=== PATIENT | female | born 1990 | race Caucasian/White ===

== ENCOUNTER → 2018-10-24 | Outpatient (CLI) | payer SELFPAY ==
[~2018-10-24] MED LIST: DOCU100C37 PO; FLUO40CA; FLUO40CA12 PO; HYOS0.1283 SL; IBUP-1780 PO; KETO10TA PO; NITR-65 PO; OXYC-465 PO; PHEN-640 PO; PREG50CA2 PO
--- NOTE | 2018-10-24 11:32 | Diagnostic Imaging Report ---
PROCEDURE: MRI lumbar spine. TECHNIQUE: Multiplanar, multisequence MRI of the lumbar spine was performed without contrast. INDICATION: Chronic low back pain. COMPARISON: No prior studies are available for comparison. FINDINGS: Curvature of the lumbar spine is normal. There is minimal retrolisthesis of L5 on S1. Vertebral body heights are maintained. The marrow signal intensity is normal. No acute compression fracture or geographic marrow lesion is seen. There is normal height and signal intensity to the lumbar intervertebral discs apart from some desiccation and mild narrowing at the L5-S1 level compatible with degenerative disc disease. The conus is unremarkable at the L1-L2 level. T12-L1: Central canal and neural foramina are widely patent. L1-L2: No central canal or neuroforaminal narrowing is seen. L2-L3: Unremarkable. L3-L4: Unremarkable. L4-L5: Unremarkable. L5-S1: There is a wide-based midline/right paramidline disc bulge, indenting the ventral thecal sac. This appears to impinge upon the right S1 nerve root origin with moderate narrowing of the right lateral recess. There is mild bilateral neuroforaminal narrowing due to broad-based disc/osteophyte complex. Mild central canal narrowing is seen. Paraspinous tissues are unremarkable. IMPRESSION: L5-S1 degenerative disc disease. There is a broad-based disc bulge in the midline/right paramidline location, impinging upon the right S1 nerve root origin. Mild bilateral neuroforaminal and central canal narrowing is present as well. Dictated by: Dictated on workstation # [id number]
== END ==
LOC: RAD 10:10
PROVIDERS: ATTEND Physician Assistant
DX: M51.37 Other intervertebral disc degeneration, lumbosacral region (principal); M51.27 Other intervertebral disc displacement, lumbosacral region; M48.061 Spinal stenosis, lumbar region without neurogenic claudication
CPT/HCPCS: 72148

== ENCOUNTER 2018-12-21 19:40 | Emergency (ER) | payer SELFPAY ==
[~2018-12-21] VITALS: Ht 167.6 cm; Wt 61.2 kg
[2018-12-21] MEDS ORDERED: FAMO-119 PO (20:06)
[2018-12-21] MEDS ORDERED: prednisone PO (20:06)
[2018-12-21] MEDS ORDERED: predniSONE 20 MG TAB PO ONE (20:15)
[2018-12-21] MEDS ORDERED: FAMOTIDINE 20 MG (PEPCID) TABLET PO ONE (20:15)
[2018-12-21 20:35] VITALS: BP 108/74
--- NOTE | 2018-12-22 11:47 | ED General ---
General Chief Complaint: Allergic Reaction Stated Complaint: POSS ALLERGIC REACTION Nursing Triage Note: pt states she was at work cleaning up states abdominal pain with nausea/hot flash. pt verbalized eyes and throat started swelling. pt denies any allergies. Nursing Sepsis Screen: No Definite Risk Source of Information: Patient Exam Limitations: No Limitations History of Present Illness Date Seen by Provider: Dec 21, 2018 Time Seen by Provider: 21:00 Initial Comments Patient is a 28-year-old female presents with facial swelling, itching and urticaria while at work. Patient denies shortness of breath wheezing, airway swelling. Recently started on unknown medication for treatment of bipolar 3 weeks ago. No other new exposures. Timing/Duration: 1/2 Hour Associated Systoms: Shortness of Air Allergies and Home Medications Allergies Coded Allergies: No Known Drug Allergies (Unverified , 07/08/15) Home Medications Docusate Sodium 100 Mg Capsule, 100 MG PO BID Prescribed by: [place] RADER on 07/14/15729 Famotidine 20 Mg Tablet, 20 MG PO BID Prescribed by: SILVIA WEISS on 12/21/182005 Fluoxetine HCl 40 Mg Capsule, 40 MG PO HS, (Reported) Hyoscyamine Sulfate 0.125 Mg Tab.subl, 1-2 TAB SL Q4H Prescribed by: BREANNA MORALES on 07/21/15153 Ibuprofen 800 Mg Tablet, 800 MG PO BID, (Reported) Ibuprofen 800 Mg Tablet, 800 MG PO Q6HR Prescribed by: [place] RADER on 07/14/15729 Ketorolac Tromethamine 10 Mg Tablet, 10 MG PO Q6H Prescribed by: BREANNA MORALES on 07/21/15153 Nitrofurantoin Monohyd/M-Cryst 100 Mg Capsule, 100 MG PO BID Prescribed by: BREANNA MORALES on 07/21/15153 Oxycodone HCl/Acetaminophen 1 Each Tablet, 1-2 TAB PO Q4H PRN for PAIN Prescribed by: [place] RADER on 07/14/15729 Phenazopyridine HCl 200 Mg Tablet, 1 TAB PO TID Prescribed by: BREANNA MORALES on 07/21/15153 Pregabalin 50 Mg Capsule, 100 MG PO TID, (Reported) TAKE 2 (50MG) TABS [prednisone] , 50 MG PO DAILY Prescribed by: SILVIA WEISS on 12/21/182005 Patient Home Medication List Home Medication List Reviewed: Yes Review of Systems Review of Systems Constitutional: no symptoms reported EENTM: No mouth swelling, No throat swelling Respiratory: no symptoms reported Skin: rash Past Lrsviru-Vezjcx-Escdax Hx Patient Social History Alcohol Use: Denies Use Recent Foreign Travel: No Contact w/Someone Who Travel: No Recent Infectious Disease Expo: No Past Medical History Appendectomy, Gallbladder, Hysterectomy, Oophorectomy Reproductive Disorders: Yes (CPP, DUB) Female Reproductive Disorders: Endometriosis WHE[employer] History: Hysterectomy Gall Bladder Disease Anxiety, Depression Family Medical History Alcoholism 19 MOTHER Arthritis 19 FATHER GRANDPARENTS Diabetes mellitus GRANDPARENTS Drug abuse 19 FATHER G8 BROTHER G8 SISTER FH: cancer 19 MOTHER (CERVICAL) Psychosocial problem 19 FATHER 19 MOTHER G8 SISTER Physical Exam Vital Signs Vital Signs - First Documented 12/21/18 19:55 Temp 98.0 Pulse 78 Resp 18 B/P (MAP) 116/69 (85) Pulse Ox 99 O2 Delivery Room Air Capillary Refill : Less Than 3 Seconds Height, Weight, BMI Height: 5'6.00" Weight: 135lbs. oz. 61.476614rd; BMI Method:Estimated General Appearance: No Apparent Distress HEENT: PERRL/EOMI, TMs Normal, Other (lower eyelid swelling, outer lower lip swelling, nor orolingual, posterior pharyngeal swelling) Neck: Full Range of Motion, Normal Inspection Respiratory: Chest Non Tender, Lungs Clear, Normal Breath Sounds Cardiovascular: Regular Rate, Rhythm, No Edema, No Gallop, No JVD, No Murmur, Normal Peripheral Pulses Gastrointestinal: Normal Bowel Sounds, No Organomegaly, No Pulsatile Mass, Non Tender, Soft Back: Normal Inspection, No CVA Tenderness, No Vertebral Tenderness Extremity: Normal Capillary Refill, Normal Inspection, Normal Range of Motion, Non Tender, No Calf Tenderness, No Pedal Edema Neurologic/Psychiatric: Alert, Oriented x3, No Motor/Sensory Deficits, Normal Mood/Affect Skin: Rash, Tattoos/Piercings (mild diffuse urticaria over her anterior torso,) Focused Exam Sepsis Stage: Ruled Out Progress/Results/Core Measures Suspected Sepsis Recent Fever Within 48 Hours: No Infection Criteria Present: None New/Unexplained Altered Menta: No Sepsis Screen: No Definite Risk SIRS Temperature:98.0 Pulse: 80 Respiratory Rate: 18 Blood Pressure 108 /74 Mean: 85 Results/Orders My Orders Orders - SILVIA WEISS DO Prednisone Tablet (Deltasone Tablet) (12/21/18 20:15) Famotidine Tablet (Pepcid Tablet) (12/21/18 20:15) Vital Signs/I&O Capillary Refill : Less Than 3 Seconds Blood Pressure Mean: 85 Progress Note : Time: 22:00 Progress Note Allergic reaction likely secondary to medication. Symptoms improved while in the ED. Recommend watchful waiting supportive care, discontinuing only prescribed medication with close PCP follow-up. Return cautions reviewed ECG Initial ECG Impression Date: Dec 21, 2018 Departure Impression Primary Impression: Allergic reaction caused by a drug Disposition: HOME, SELF-CARE Condition: Stable Departure-Patient Inst. Patient Instructions: Drug Allergy Add. Discharge Instructions: Please discontinue recently prescribed medication. Take prednisone and Pepcid next 5 days for allergies and take Benadryl as needed for additional relief. Follow up with your medication provider tomorrow. Return to the ED if new or worsening symptoms. All discharge instructions reviewed with patient and/or family. Voiced understanding. Scripts Famotidine (Pepcid) 20 Mg Tablet 20 MG PO BID for 5 Days, TAB Prov: SILVIA WEISS DO 12/21/18 [prednisone] No Conflict Check 50 MG PO DAILY for 5 Days, #5 Prov: SILVIA WEISS DO 12/21/18 SILVIA WEISS DO Dec 22, 2018 11:47
== END 2018-12-21 20:35 | disposition home or self-care (01) ==
LOC: EDUNIT# 19:40 → ER FS 19:42
DX: R22.0 Localized swelling, mass and lump, head (principal); T88.7XXA Unspecified adverse effect of drug or medicament, initial encounter; F41.9 Anxiety disorder, unspecified; F32.9 Major depressive disorder, single episode, unspecified; Z79.52 Long term (current) use of systemic steroids; Z90.49 Acquired absence of other specified parts of digestive tract; Z80.49 Family history of malignant neoplasm of other genital organs; Z90.710 Acquired absence of both cervix and uterus; Z98.890 Other specified postprocedural states; Z87.448 Personal history of other diseases of urinary system; Z87.19 Personal history of other diseases of the digestive system; Y92.59 Other trade areas as the place of occurrence of the external cause; Y99.0 Civilian activity done for income or pay
CPT/HCPCS: 99283